=== PATIENT | male | born 1965 | race Caucasian/White ===

== ENCOUNTER 2019-03-07 17:58 | Emergency (ER) | payer BC, MEDICAID ==
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
[2019-03-07] MEDS ORDERED: PERCOCET TABLET 5/325MG PO STA (19:57)
[2019-03-07] MEDS ORDERED: DELTASONE 10 MG PO ONE (19:58)
[2019-03-07] MEDS ORDERED: Zithromax 250 MG TABLET PO ONE (19:58)
[2019-03-07] MEDS ORDERED: PERCOCET TABLET 5/325MG ONE (20:04)
[2019-03-07] MEDS ORDERED: DELTASONE 20 MG ONE (20:04)
[2019-03-07] MEDS ORDERED: Zithromax 250 MG TABLET ONE (20:04)
[2019-03-07] MEDS ORDERED: CARDIZEM DRIP 100 MG/100 ML D5W 100 ML IV PRN (20:27)
[2019-03-07] MEDS ORDERED: LOPRESSOR 5 MG/5 ML INJECTION IV ONE (20:27)
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
[2019-03-07 20:39] VITALS: BP 124/76; PULSE 65; O2SAT 96
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
== END 2019-03-07 20:50 | disposition home or self-care (01) ==
LOC: ED 17:58
DX: S00.93XS Contusion of unspecified part of head, sequela (principal); S16.1XXS Strain of muscle, fascia and tendon at neck level, sequela; R20.0 Anesthesia of skin; V63 Occupant of heavy transport vehicle injured in collision with car, pick-up truck or van; J32.9 Chronic sinusitis, unspecified
CPT/HCPCS: 70450; 72125; 99284; A9270-GY

== ENCOUNTER 2024-04-03 05:49 | Day surgery (SDC) | payer BC, MEDICAID ==
[2024-04-03] MEDS: Lactated Ringers 1,000 ML IV SCH (06:25)
[2024-04-03 06:47] VITALS: RESP 18
[2024-04-03] MEDS ORDERED: DIPRIVAN 200 MG/20 ML IV ONE (07:41)
[2024-04-03 08:20] VITALS: O2SAT 99
[2024-04-03 08:28] VITALS: BP 129/81; PULSE 67; TEMP 98.8
--- NOTE | 2024-04-04 13:37 | OP ---
SURGERY DATE/TIME: 04/03/2024 5213 - [id number] PREOPERATIVE DIAGNOSIS: Screening exam. POSTOPERATIVE DIAGNOSIS: Proctitis, internal hemorrhoids. PROCEDURE: Colonoscopy with cold forceps biopsy. SURGEON: Hieu Byrd MD. ANESTHESIA: Medications were given by the anesthesia department. INDICATIONS: The patient is a 58-year-old white male patient who presents for a colon examination. He reports he has been having some trouble with constipation but otherwise no problems. He has never had a colonoscope performed. The patient was felt to need to have endoscopic evaluation. He was apprised of the risks of the procedure including the risk of perforation, phlebitis, untoward reaction to medication, bleeding, and missed lesions. The patient verbalized his understanding and desired to have the procedure performed. DESCRIPTION OF PROCEDURE AND FINDINGS: Patient was given medication by the anesthesia department. He had continuous pulse oximetry, ECG monitoring, and intermittent blood pressure monitoring during the examination. He was placed in the left lateral decubitus position. Digital rectal examination was performed and revealed normal anal sphincter tone, no masses, and a normal prostate. The flexible Olympus videocolonoscope was used to intubate the rectum. A view of the colon was developed sequentially to the cecum. Upon insertion and withdrawal, there was noted to be some irritation that appeared to be proctitis and internal hemorrhoids. These were biopsied using a cold biopsy technique to be sure there was no neoplastic change. There was noted to be some bleeding at the end of this portion of the procedure. The prep was noted to be fairly good. Patient was taken back to the recovery room in good condition.
== END 2024-04-03 08:34 | disposition home or self-care (01) ==
LOC: SDC 05:49
PROVIDERS: ATTEND Family Medicine
DX: Z12.11 Encounter for screening for malignant neoplasm of colon (principal); K62.89 Other specified diseases of anus and rectum; K64.8 Other hemorrhoids
CPT/HCPCS: J2704